=== PATIENT | female | born 1990 | race Caucasian/White ===

== ENCOUNTER 2023-05-14 20:49 | Emergency (ER) | payer OTHER ==
[~2023-05-14] VITALS: Ht 157.5 cm; Wt 49.9 kg
[2023-05-14 21:28] VITALS: BP_SYST 112; PULSE 72; RESP 18; TEMP 98.3; O2SAT 99
== END 2023-05-15 | disposition home or self-care (01) ==
LOC: SED 20:49
DX: Z77.21 Contact with and (suspected) exposure to potentially hazardous body fluids (principal); Z79.899 Other long term (current) drug therapy
CPT/HCPCS: 36415; 86704; 86706; 86803; 87340; 99281; 99283